=== PATIENT | male | born 2000 | race Caucasian/White ===

== ENCOUNTER 2022-11-13 14:13 | Inpatient (IN) | payer MEDICAID, OTHER ==
[~2022-11-13] VITALS: Ht 165.1 cm; Wt 79.7 kg
[2022-11-13] MEDS ORDERED: HYDROcodone-ACET 5/325MG TAB PO ONE (16:15)
[2022-11-13] MEDS ORDERED: NEOMYCIN-BACITRACIN-POLYM UNITDOSE PKG TOP OINT TOP ONE (16:15)
[2022-11-13 16:54] LABS: Basophils # (auto) 0 10 ^3/uL (0-0.2); Basophils % (auto) 0.1 % (0.0-2.0); Eosinophils # (auto) 0 10 ^3/uL (0-0.8); Hematocrit 47.7 % (41.0-53.0); Hemoglobin 16.3 g/dL (13.5-17.5); Lymphocytes # (auto) 0.7 10 ^3/uL (0.4-5.4); Lymphocytes % (auto) 4.6 % (10.0-50.0); Mean Corpuscular Hemoglobin 31.8 pg (28.0-32.0); Mean Corpuscular Hgb Conc. 34.2 g/dL (32.0-36.0); Mean Corpuscular Volume 93.2 fL (80.0-100.0); Monocytes # (auto) 0.7 10 ^3/uL (0-1.3); Monocytes % (auto) 5.1 % (0.0-12.0); Neutrophils # (auto) 12.7 10 ^3/uL (1.6-8.6); Neutrophils % (auto) 90.2 % (37.0-80.0); Red Blood Cells 5.12 10^6/uL (4.5-5.90); White Blood Cell 14.1 10^3/uL (4.4-10.8)
[2022-11-13] MEDS ORDERED: ONDANSETRON HCL 4 MG/2 ML VIAL IV ONE (17:15)
[2022-11-13 17:18] LABS: BUN/Creatinine Ratio 18.4 (10.0-20.0); Calcium 8.8 mg/dL (8.5-10.1)
[2022-11-13 17:21] LABS: Bilirubin, Total 1.2 mg/dL (0.2-1.0); Total Protein 6.9 g/dL (6.4-8.2)
[2022-11-13] MEDS ORDERED: HYDROcodone-ACET 5/325MG TAB PO PRN (19:15)
[2022-11-13] MEDS ORDERED: ACETAMINOPHEN 325 MG TAB PO PRN (19:15)
[2022-11-13] MEDS ORDERED: NITROGLYCERIN 0.4 MG SL TAB SL PRN (19:15)
[2022-11-13] MEDS ORDERED: MORPHINE SULFATE INJ 2 MG/ml SYRG IV PRN ×2 (19:15)
[2022-11-13 19:49] LABS: INR 1.08 (0.9-1.15); Partial Thromboplastin Time 25.9 sec (24.6-33.4)
[2022-11-13 20:17] LABS: Amylase 61 U/L (25-115); Blood Alcohol < 3.0 mg/dL (0-5); Lipase 84 U/L (73-393)
[2022-11-13 20:21] LABS: INR 1.11 (0.9-1.15); Partial Thromboplastin Time 26.6 sec (24.6-33.4)
[2022-11-13] MEDS: ceFAZolin 1GM/50ML 50 ML IV SCH ×2 (20:34→22:00)
[2022-11-13] MEDS: SODIUM CHLORIDE 0.9% 1,000 ML IV SCH (22:41)
[2022-11-14] VITALS (7 sets, daily range): BP systolic 102–132; BP diastolic 52–77
[2022-11-14 01:09] LABS: Urine WBC None Seen /hpf (0 - 3)
[2022-11-14 01:27] LABS: Urine Bacteria NONE SEEN /hpf (None Seen); Urine Blood Negative /uL (Negative); Urine Specific Gravity 1.004 (1.001-1.035)
[2022-11-14 01:51] LABS: Alcohol, Urine < 3.0 mg/dL (0-10); Amphetamine Screen, Urine NEGATIVE (NEGATIVE); Barbiturate Scree,Urine NEGATIVE (NEGATIVE); Cannabinoid Screen, Urine POSITIVE (NEGATIVE)
[2022-11-14 01:59] LABS: Benzodiazephine Screen, Urine NEGATIVE (NEGATIVE); Cocaine Screen, Urine NEGATIVE (NEGATIVE); Opiate Scree,Urine NEGATIVE (NEGATIVE); Phencyclidine Screen, Urine NEGATIVE (NEGATIVE)
[2022-11-14] MEDS: ceFAZolin 1GM/50ML 50 ML IV SCH ×3 (05:53→21:11)
[2022-11-14 06:12] LABS: Basophils # (auto) 0 10 ^3/uL (0-0.2); Basophils % (auto) 0.1 % (0.0-2.0); Eosinophils # (auto) 0 10 ^3/uL (0-0.8); Eosinophils % (auto) 0.3 % (0.0-7.0); Hematocrit 43.1 % (41.0-53.0); Lymphocytes # (auto) 1.8 10 ^3/uL (0.4-5.4); Lymphocytes % (auto) 20.9 % (10.0-50.0); Mean Corpuscular Hemoglobin 32.4 pg (28.0-32.0); Mean Corpuscular Hgb Conc. 34.9 g/dL (32.0-36.0); Mean Corpuscular Volume 92.9 fL (80.0-100.0); Monocytes # (auto) 0.6 10 ^3/uL (0-1.3); Neutrophils # (auto) 6.3 10 ^3/uL (1.6-8.6); Neutrophils % (auto) 71.7 % (37.0-80.0); Red Blood Cells 4.64 10^6/uL (4.5-5.90); Red Cell Distribution Width 13.1 % (11.8-14.3); White Blood Cell 8.8 10^3/uL (4.4-10.8)
[2022-11-14 06:34] LABS: Potassium 3.2 mmol/L (3.5-5.1)
[2022-11-14 06:56] LABS: Albumin 3.4 g/dL (3.4-5.0); BUN/Creatinine Ratio 16.7 (10.0-20.0); Bilirubin, Total 1.4 mg/dL (0.2-1.0); Calcium 8.4 mg/dL (8.5-10.1); Total Protein 6.4 g/dL (6.4-8.2)
[2022-11-14] MEDS: ENOXAPARIN SOD 40 MG/0.4 ML SYRINGE SC SCH (09:30)
[2022-11-14 10:50] LABS: Hepatitis B Surface Antibody Negative (Negative)
[2022-11-14] MEDS: SODIUM CHLORIDE 0.9% 1,000 ML IV SCH ×2 (10:59→19:15)
[2022-11-14 11:23] LABS: Hepatitis A Total Antibody Positive (Negative)
[2022-11-14] MEDS ORDERED: MUPIROCIN 2% OINT 15gm or 22gm TOP ONE (11:45)
[2022-11-14 13:01] LABS: Hepatitis C Antibody Negative (Negative)
[2022-11-14] MEDS ORDERED: POTASSIUM EFFERVESENT TAB 25 MEQ GT ONE (16:45)
[2022-11-14] MEDS ORDERED: POTASSIUM EFFERVESENT TAB 25 MEQ PO ONE (18:00)
[2022-11-14] MEDS: MUPIROCIN 2% OINT 15gm or 22gm TOP SCH (21:11)
[2022-11-15] MEDS: SODIUM CHLORIDE 0.9% 1,000 ML IV SCH ×2 (03:15→11:15)
[2022-11-15 05:00] VITALS: BP 122/65
[2022-11-15] MEDS: ceFAZolin 1GM/50ML 50 ML IV SCH (05:46)
[2022-11-15 07:13] LABS: Anion Gap 6 (5-15); Blood Urea Nitrogen 5 mg/dL (7-18); Calcium 8.6 mg/dL (8.5-10.1); Carbon Dioxide 23 mmol/L (21-32); Chloride 109 mmol/L (98-107); Glucose 87 mg/dL (74-106); Sodium 138 mmol/L (136-145)
[2022-11-15 07:33] LABS: BUN/Creatinine Ratio 33.3 (10.0-20.0); GFR African American 1083 mL/min; GFR Non-African American 895 mL/min
[2022-11-15 08:35] VITALS: BP 108/50
[2022-11-15] MEDS ORDERED: MUPI2OIN9 EX (09:36)
[2022-11-15] MEDS: MUPIROCIN 2% OINT 15gm or 22gm TOP SCH (09:54)
[2022-11-15] MEDS: ENOXAPARIN SOD 40 MG/0.4 ML SYRINGE SC SCH (09:54)
[2022-11-15 09:57] VITALS: BP 108/50
== END 2022-11-15 12:35 | disposition home or self-care (01) | DRG 843 ==
LOC: ER 14:13 → EDBD 14:13 → TELE 19:06 → TELE-CENTR 23:51
PROVIDERS: ADMIT Registered Nurse; ATTEND Internal Medicine Pulmonary Disease
DX: T21.21XA Burn of second degree of chest wall, initial encounter (principal); T31.11 Burns involving 10-19% of body surface with 10-19% third degree burns; G71.01 Duchenne or Becker muscular dystrophy; T31.10 Burns involving 10-19% of body surface with 0% to 9% third degree burns; E66.9 Obesity, unspecified; T22.232A Burn of second degree of left upper arm, initial encounter; R74.01 Elevation of levels of liver transaminase levels; E87.6 Hypokalemia; W01.0XXA Fall on same level from slipping, tripping and stumbling without subsequent striking against object, initial encounter; F12.90 Cannabis use, unspecified, uncomplicated; R79.89 Other specified abnormal findings of blood chemistry; G71.00 Muscular dystrophy, unspecified; Z82.49 Family history of ischemic heart disease and other diseases of the circulatory system; Z68.29 Body mass index [BMI] 29.0-29.9, adult
CPT/HCPCS: 36415; 70450; 70551; 73030; 76705; 80048; 80053; 80307; 80320; 81001; 82150; 82306; 82977; 83690; 85025; 85610; 85730; 86704; 86706; 86708; 86803; 87040; 87340; 93005; 93306; 93886; 96374; G0378; J0690; J2405